=== PATIENT | female | born 1990 | race Caucasian/White ===

== ENCOUNTER 2019-12-13 13:41 | Emergency (ER) | payer SELFPAY ==
[2019-12-13] MEDS ORDERED: Ketorolac Tromethamine 30 MG/ML VIAL ONE (14:12)
[2019-12-13 14:13] LABS: Bacteria/HPF None Seen HPF (None Seen); Bilirubin Negative (Negative); Blood, Urine Negative (Negative); Clarity Clear (Clear); Glucose, Urine (Dipstick) Normal (Negative); Ketone, Urine Negative (Negative); Leukocyte 75 Leu/uL (Negative); Nitrite Negative (Negative); Protein, Urine (Dipstick) Negative (Neg-Trace); RBC/HPF 0-3 HPF (0-3); Specific Gravity, Urine 1.021 (1.002-1.036); Squamous Epithelial None Seen HPF (0-3); Urobilinogen Normal mg/dL (Less than 2); WBC/HPF 0-3 HPF (0-3)
[2019-12-13 14:17] LABS: Pregnancy Test - Urine (BHCG) Negative (Negative); Pregu Control Background? CLEAR/WHITE (CLR/WHITE); Pregu Control Bar Appear? YES (CONTROL BAR); Specific Gravity 1.021 (1.002-1.036)
[2019-12-13] MEDS ORDERED: Ondansetron PF 4 MG/2 ML Vial ONE (14:18)
[2019-12-13 14:27] LABS: #Eosinphils 0.1 thou/uL (0.0-0.7); #Lymphocytes 2.7 thou/uL (1.20-3.40); #Monocytes 0.6 thou/uL (0.11-0.59); #Neutrophils 4.1 thou/uL (1.40-6.50); %Basophils 0.7 % (0.0-1.0); %Eosinophils 1.5 % (0.0-10.0); %Lymphocytes 36.2 % (21.0-51.0); %Monocytes 7.7 % (0.0-10.0); %Neutrophils 53.9 % (42.0-75.0); Hemoglobin 15.6 g/dL (12.0-16.0); Mean Corpuscular HGB CONC 34.2 g/dL (32.0-36.0); Mean Corpuscular Hemoglobin 31.6 pg (27.0-31.0); Mean Corpuscular Volume 92.4 fL (78.0-98.0); Mean Platelet Volume 6.9 fL (7.4-10.4); Platelet Count 293 thou/uL (130-400); RBC Distribution Width 11.3 % (11.5-14.5); Red Blood Cell (RBC) Count 4.93 mill/uL (4.20-5.40); White Blood Cell (WBC) Count 7.5 thou/uL (4.8-10.8)
[2019-12-13 14:43] LABS: ALT (SGPT) 19 U/L (8-55); AST (SGOT) 18 U/L (5-34); Albumin 4.7 g/dL (3.5-5.0); Alkaline Phosphatase 58 U/L (40-110); Anion Gap 15 mmol/L (10-20); BUN (Urea Nitrogen) 9 mg/dL (7.0-18.7); Bilirubin, Total 0.6 mg/dL (0.2-1.2); Calc. Creatinine Clearance 0 mL/min (70-130); Calcium 9.3 mg/dL (7.8-10.44); Carbon Dioxide 21 mmol/L (22-29); Chloride 105 mmol/L (98-107); Estimated GFR-MDRD 85; Globulin 3.1 g/dL (2.4-3.5); Glucose 87 mg/dL (70-105); Lipase 20 U/L (8-78); Potassium 3.3 mmol/L (3.5-5.1); Protein, Total 7.8 g/dL (6.0-8.3); Sodium 138 mmol/L (136-145)
--- NOTE | 2019-12-13 15:07 | ULT ---
Exam: Right upper quadrant ultrasound: HISTORY: Right upper quadrant pain for 2 days. COMPARISON: None FINDINGS: Liver: Within normal limits Gallbladder: No evidence of gallbladder calculi, gallbladder wall thickening, or pericholecystic flui d. Common bile duct: The common duct is normal in caliber measuring 0.3 cm in diameter. Pancreas: Limited visualized portions of the pancreas demonstrate a normal sonographic appearance. Right kidney: Right kidney demonstrates a normal sonographic appearance. The right kidney measures 8 .4 cm in length. IVC: The visualized IVC demonstrates a normal sonographic appearance. IMPRESSION: Right upper quadrant ultrasound is within normal limits, and no gallbladder calculi are seen.
== END 2019-12-13 15:50 | disposition home or self-care (01) ==
LOC: ERS 13:41
DX: R10.13 Epigastric pain (principal)
CPT/HCPCS: 36415; 76705; 80053; 81003; 81015; 81025; 83690; 85025; 96374; 96375; J1885; J2405